=== PATIENT | male | born 1965 | race Hispanic/Latino ===

== ENCOUNTER 2021-01-16 17:00 | Inpatient (IN) | payer OTHER ==
[~2021-01-16] VITALS: Ht 167.6 cm; Wt 79.0 kg
[2021-01-16] VITALS (7 sets, daily range): BP systolic 106–193; BP diastolic 82–113
[2021-01-16] MEDS ORDERED: CEFAZOLIN SODIUM 1 GM VIAL ONE (17:10)
[2021-01-16] MEDS ORDERED: ONDANSETRON HCL 4 MG/2 ML VIAL ONE ×2 (17:10→19:52)
[2021-01-16] MEDS ORDERED: MORPHINE 4 MG SYG (4MG/1ML) ONE ×2 (17:11→19:52)
[2021-01-16] MEDS ORDERED: TETANUS/DIPHTHERIA TOXOID [ADULT] 0.5 ML VIAL IM SCH (17:30)
[2021-01-16 17:38] LABS: BASOPHILS % (AUTO) 1.5 % (0.0-5.0); HEMATOCRIT 44.9 % (42-54); LYMPHOCYTES % (AUTO) 42.6 % (21.0-51.0); MEAN CORPUSCULAR HEMOGLOBIN 30.6 pg (27.0-33.0); MEAN CORPUSCULAR HGB CONC 33.9 g/dL (32.0-36.0); MEAN CORPUSCULAR VOLUME 90.3 fL (79-99); NEUTROPHILS % (AUTO) 44.3 % (40.0-77.0); PLATELET COUNT (AUTO) 239 K/uL (130-400); RED BLOOD CELL COUNT(AUTO) 4.97 MIL/uL (4.50-6.20); RED CELL DISTRIBUTION WIDTH 12.7 % (11.0-15.5)
[2021-01-16 17:42] LABS: CREATININE 1.4 mg/dL (0.5-1.5)
[2021-01-16 17:45] LABS: INR 0.99 (0.85-1.15); PROTHROMBIN TIME 10.8 SEC (9.6-11.6)
[2021-01-16] MEDS ORDERED: CEFAZOLIN SODIUM 1 GM VIAL IVP ONE (17:45)
[2021-01-16 17:46] LABS: PARTIAL THROMBOPLASTIN TIME 24.8 SEC (26.3-35.5)
[2021-01-16 17:47] LABS: ALBUMIN 3.9 g/dL (3.5-5.0); BILIRUBIN,TOTAL 0.3 mg/dL (0.2-1.0); TOTAL PROTEIN, SERUM 8.1 g/dL (6.0-8.3)
[2021-01-16] MEDS ORDERED: MORPHINE 4 MG SYG (4MG/1ML) IV ONE (20:00)
[2021-01-16] MEDS: ACETAMINOPHEN-CODEINE 300/30MG TAB PO PRN (23:26)
[2021-01-16 23:54] LABS: APPEARANCE,URINE Clear (CLEAR); BILIRUBIN,URINE Negative (NEGATIVE); COLOR,URINE Yellow (YELLOW); GLUCOSE, URINE (UA) TRACE mg/dL (NEGATIVE); KETONES,URINE Negative (NEGATIVE); LEUKOCYTE ESTERASE ,URINE Negative (NEGATIVE); NITRATE,URINE Negative (NEGATIVE); OCCULT BLOOD,URINE Negative (NEGATIVE); PROTEIN,URINE Negative (NEGATIVE); UROBILINOGEN,URINE 0.2 mg/dL (0.2-1.0)
[2021-01-17] VITALS (7 sets, daily range): BP systolic 110–176; BP diastolic 50–97
[2021-01-17 00:10] LABS: BACTERIA,URINE Rare /HPF (None Seen); RBC,URINE 0-1 /HPF (0-1); WBC,URINE 0-1 /HPF (0-1)
[2021-01-17] MEDS: MORPHINE 2 MG SYG (2MG/1ML) IVP PRN ×3 (03:23→22:11)
[2021-01-17] MEDS: CEFAZOLIN SODIUM 1 GM VIAL IV SCH ×3 (04:54→19:40)
[2021-01-17] MEDS ORDERED: LOSA1TAB42 PO (06:33)
[2021-01-17] MEDS ORDERED: METF-446 PO (06:34)
[2021-01-17] MEDS: ACETAMINOPHEN-CODEINE 300/30MG TAB PO PRN ×3 (09:49→19:41)
[2021-01-17] MEDS: ONDANSETRON HCL 4 MG/2 ML VIAL IVP PRN (22:09)
[2021-01-18] VITALS (25 sets, daily range): BP systolic 137–193; BP diastolic 78–101
[2021-01-18] MEDS: MORPHINE 2 MG SYG (2MG/1ML) IVP PRN ×3 (03:16→12:32)
[2021-01-18] MEDS: CEFAZOLIN SODIUM 1 GM VIAL IV SCH ×3 (04:33→20:48)
[2021-01-18] MEDS: ONDANSETRON HCL 4 MG/2 ML VIAL IVP PRN ×2 (04:34→08:55)
[2021-01-18] MEDS: ACETAMINOPHEN-CODEINE 300/30MG TAB PO PRN (04:34)
[2021-01-18] MEDS ORDERED: FENTANYL CITRATE PF 50 MCG/1 ML 2ML VIAL ONE ×2 (14:23→15:15)
[2021-01-18] MEDS ORDERED: MIDAZOLAM HCL 1 MG/ML 2ML VIAL ONE (14:23)
[2021-01-18] MEDS ORDERED: PROPOFOL 10 MG/ML 20ML VIAL IV ONE (14:24)
[2021-01-18] MEDS ORDERED: CEFAZOLIN SODIUM 1 GM VIAL ONE (15:06)
[2021-01-18] MEDS ORDERED: ROPIVACAINE 0.5% 5MG/ML 30ML IJ ONE (15:20)
[2021-01-18] MEDS ORDERED: LABETALOL HCL 5 MG/ML 20ML VIAL IV ONE (15:50)
[2021-01-18] MEDS ORDERED: HYDRALAZINE HCL 20 MG/ML VIAL IV PRN (17:45)
[2021-01-18] MEDS: METFORMIN HCL 500 MG TABLET PO SCH (20:48)
[2021-01-19] MEDS: ACETAMINOPHEN-CODEINE 300/30MG TAB PO PRN ×2 (00:35→10:18)
[2021-01-19 04:03] VITALS: BP 137/80
[2021-01-19] MEDS: CEFAZOLIN SODIUM 1 GM VIAL IV SCH ×2 (04:35→12:33)
[2021-01-19 08:13] VITALS: BP 178/94
[2021-01-19] MEDS: METFORMIN HCL 500 MG TABLET PO SCH (08:23)
[2021-01-19] MEDS ORDERED: HYDROCHLOROTHIAZIDE 25 MG TABLET PO SCH (09:00)
[2021-01-19] MEDS ORDERED: LOSARTAN 100 MG TABLET PO SCH (09:00)
[2021-01-19 11:40] VITALS: BP 143/81
== END 2021-01-19 13:45 | disposition home or self-care (01) | DRG 903 ==
LOC: EDH 17:00 → EDHIP 17:01 → 3AH 01-17 09:19
PROVIDERS: ADMIT Surgery Plastic and Reconstructive Surgery; ATTEND Surgery Plastic and Reconstructive Surgery
PROC: 0JBR0ZZ Excision of Left Foot Subcutaneous Tissue and Fascia, Open Approach (ICD-10-PCS; principal; 2021-01-18 14:47)
DX: S98.122A Partial traumatic amputation of left great toe, initial encounter (principal); E11.621 Type 2 diabetes mellitus with foot ulcer; L97.529 Non-pressure chronic ulcer of other part of left foot with unspecified severity; I10 Essential (primary) hypertension; X58.XXXA Exposure to other specified factors, initial encounter; Y93.89 Activity, other specified; Y92.89 Other specified places as the place of occurrence of the external cause; Y99.8 Other external cause status
CPT/HCPCS: 36415; 71045; 73630; 80053; 81001; 82948; 85025; 85610; 85730; 90714; 93005; G0378; J0360; J0690; J2250; J2270; J2405; J2704; J2795; J3010; J3490; J7030